=== PATIENT | female | born 1980 | race Caucasian/White ===

== ENCOUNTER → 2021-05-02 | Outpatient (CLI) | payer BC ==
[2021-05-02 12:32] LABS: Basophils % (A) 0 %; Eosinophils # (A) 0.1 k/uL (0-0.7); Eosinophils % (A) 2 %; HCT 49.3 % (34.0-46.0); HGB 15.6 gm/dL (11.4-16.0); Lymphocytes # (A) 1.6 k/uL (1.0-4.8); Lymphocytes % (A) 25 %; MCH 31.5 pg (25.0-35.0); MCHC 31.6 g/dL (31.0-37.0); MCV 99.8 fL (80.0-100.0); Mean Platelet Volume 7.2; Monocytes # (A) 0.3 k/uL (0-1.0); Monocytes % (A) 5 %; Neutrophils # (A) 4.3 k/uL (1.3-7.7); Neutrophils % (A) 66 %; Platelet Count 263 k/uL (150-450); RBC 4.94 m/uL (3.80-5.40); RDW 12.9 % (11.5-15.5); WBC 6.6 k/uL (3.8-10.6)
== END | disposition home or self-care (01) ==
LOC: LABWHC1 11:17
PROVIDERS: ATTEND Obstetrics & Gynecology
DX: Z01.812 Encounter for preprocedural laboratory examination (principal); Z01.810 Encounter for preprocedural cardiovascular examination; N92.0 Excessive and frequent menstruation with regular cycle; N94.6 Dysmenorrhea, unspecified; D25.9 Leiomyoma of uterus, unspecified
CPT/HCPCS: 36415; 85025; 93005

== ENCOUNTER 2021-05-06 08:28 | Day surgery (SDC) | payer BC ==
[2021-05-02 16:00] VITALS: BMI 33.8
[~2021-05-06 08:28] MED LIST: DEXAMETHASONE SOD PHOSPHATE 4 MG/ML 1 ML VIAL IV ONE; HYDROmorphone 0.5 MG/0.5 ML SYRINGE IVP PRN; LACTATED RINGERS 1,000 ML IV SCH; MIDAZOLAM 2 MG/2 ML VIAL IV PRN; ONDANSETRON 4 MG/2 ML VIAL IVP ONE; Pre Op ABX Message 1 EACH MISC MISCELLANE ONE; SCOPOLAMINE 1.5MG/72HR PATCH TRANSDERM ONE
[2021-05-06] MEDS ORDERED: LACTATED RINGERS 1,000 ML IV ONE (09:00)
[2021-05-06] MEDS ORDERED: LIDOCAINE 1% INJ 10MG/ML (20 ML MDV) ONE (09:57)
[2021-05-06] MEDS ORDERED: PROPOFOL 10 MG/ML 20 ML VIAL IV ONE (09:57)
[2021-05-06] MEDS ORDERED: fentaNYL (PF) 50 MCG/ML 2 ML AMP ONE (09:57)
[2021-05-06] MEDS ORDERED: KETOROLAC 15 MG/ML 1 ML VIAL ONE (09:57)
[2021-05-06] MEDS ORDERED: MIDAZOLAM 2 MG/2 ML VIAL ONE (09:57)
--- NOTE | 2021-05-06 10:41 | P.OP ---
Date of Procedure: 05/06/21 (Menorrhagia, dysmenorrhea) Preoperative Diagnosis: Menorrhagia, dysmenorrhea Postoperative Diagnosis: Same Procedure(s) Performed: Hysteroscopy, NovaSure endometrial ablation Anesthesia: DELL Surgeon: Aliza Gallegos Estimated Blood Loss (ml): 10 IV fluids (ml): 300 Urine output (ml): 300 Pathology: none sent Condition: stable Disposition: PACU Operative Findings: Essentially normal-appearing intrauterine cavity Description of Procedure: Patient is brought to the operating suite where a general anesthetic is administered without difficulty. She's placed in the dorsal lithotomy position. Urine hCG is negative. The cervix, vagina, perineal bodies are all prepped and draped in the usual sterile fashion. The appropriate timeout is performed to assure proper patient and procedural identification. Bladder is drained for approximately 300 mL of clear yellow urine. Weighted speculum was placed into the vagina and the anterior lip of the cervix is grasped with a double-tooth tenaculum. Uterus sounds to a depth of 8 cm in the anteverted position. The cervix is gently and systematically dilated with Hanks dilators. Hysteroscope was placed and the cavity is infused with sterile saline. Cavity appears normal to inspection, some shaggy proliferative-type tissue noted, no obvious fibroids or polyps. Hysteroscope was removed. NovaSure wand is now placed and seated. Uterine length of 4.5 cm is noted, with 2.5 cm. Machine is properly calibrated and enabled. For 85 seconds and a power of 62 W the procedure is carried out. When it is completed the wand is reduced and removed. Hysteroscope was once again placed and the cavity is inspected. It appears to be thoroughly and uniformly blanched. Hysteroscope was removed. Cervix is clean and dry. All sponge needle and enhancement counts are correct. Patient is brought back to recovery room in very good condition with stable vital signs including a pulse of 101, blood pressure 158/83, 98% O2 saturation. Please note that Toradol is given prior to leaving the operative suite. She will follow-up with me in the office in 2 weeks.
[2021-05-06 10:44] VITALS: RESP 16; TEMP 97.1
[2021-05-06 11:43] VITALS: BP 137/90; PULSE 72
== END 2021-05-06 12:00 | disposition home or self-care (01) ==
LOC: OR 08:28
PROVIDERS: ATTEND Obstetrics & Gynecology
DX: N92.0 Excessive and frequent menstruation with regular cycle (principal); N94.6 Dysmenorrhea, unspecified; I10 Essential (primary) hypertension; F17.210 Nicotine dependence, cigarettes, uncomplicated; Z79.899 Other long term (current) drug therapy
CPT/HCPCS: 58563; 81025; J2250; J1100; J2405; J2001; J3010; J1885; J2704

== ENCOUNTER 2021-06-15 06:47 | Day surgery (SDC) | payer BC ==
[2021-06-13 13:16] VITALS: BMI 33.8
[~2021-06-15 06:47] MED LIST changes: +ACETAMINOPHEN TAB 500 MG TAB PO PRN; -DEXAMETHASONE SOD PHOSPHATE 4 MG/ML 1 ML VIAL IV ONE; +HEPARIN SODIUM,PORCINE/PF 5,000 UNIT/0.5 ML SYRINGE SQ PRN; -HYDROmorphone 0.5 MG/0.5 ML SYRINGE IVP PRN; -LACTATED RINGERS 1,000 ML IV SCH; -MIDAZOLAM 2 MG/2 ML VIAL IV PRN; -ONDANSETRON 4 MG/2 ML VIAL IVP ONE; -Pre Op ABX Message 1 EACH MISC MISCELLANE ONE; -SCOPOLAMINE 1.5MG/72HR PATCH TRANSDERM ONE
[2021-06-15] MEDS ORDERED: MIDAZOLAM 2 MG/2 ML VIAL IV PRN (07:09)
[2021-06-15] MEDS ORDERED: LACTATED RINGERS 1,000 ML IV SCH (07:09)
[2021-06-15] MEDS ORDERED: HYDROmorphone 0.5 MG/0.5 ML SYRINGE IVP PRN (07:09)
[2021-06-15] MEDS ORDERED: LIDOCAINE 1% (10MG/ML) FOR IV START INTRADERMA PRN (07:09)
[2021-06-15] MEDS ORDERED: ONDANSETRON 4 MG/2 ML VIAL IVP ONE (07:09)
[2021-06-15] MEDS ORDERED: DEXAMETHASONE SOD PHOSPHATE 4 MG/ML 1 ML VIAL IV ONE (07:09)
[2021-06-15] MEDS ORDERED: SCOPOLAMINE 1.5MG/72HR PATCH TRANSDERM ONE (07:57)
[2021-06-15] MEDS ORDERED: MIDAZOLAM 2 MG/2 ML VIAL IV ONE (08:14)
--- NOTE | 2021-06-15 08:57 | P.GSHP ---
History of Present Illness H&P Date: 06/15/21 Chief Complaint: Incisional hernia incarcerated This is a 40-year-old female who presents today for laparoscopic robotic- assisted repair of incisional hernia. Patient underwent previous exploratory laparotomy after colonic perforation from colonoscopy at an outside hospital. She has developed an incisional hernia superior portion of her midline scar Past Medical History Past Medical History: Hypertension History of Any Multi-Drug Resistant Organisms: None Reported Past Surgical History: Uterine Ablation Additional Past Surgical History / Comment(s): Colonoscopy - perforated, had bowel sutured back. Past Anesthesia/Blood Transfusion Reactions: No Reported Reaction Past Psychological History: No Psychological Hx Reported Smoking Status: Current every day smoker Past Alcohol Use History: Occasional Additional Past Alcohol Use History / Comment(s): 1ppd smoker since age 14. Past Drug Use History: None Reported - Past Family History Mother Family Medical History: Cancer, Deep Vein Thrombosis (DVT) Medications and Allergies Home Medications Medication Instructions Recorded Confirmed Type Blood Builder Supplement 1 dose PO DAILY 05/02/21 06/13/21 History Collagen Supplement 1 dose PO DAILY 05/02/21 06/13/21 History Losartan [Cozaar] 50 mg PO QAM 05/02/21 06/15/21 History Multivitamins, Thera [Multivitamin 1 tab PO DAILY 05/02/21 06/13/21 History (formulary)] Phentermine HCl [Adipex-P] 37.5 mg PO DAILY 05/02/21 06/15/21 History [place] Supplement 1 dose PO DAILY 05/02/21 06/13/21 History Allergies Allergy/AdvReac Type Severity Reaction Status Date / Time acetaminophen AdvReac Nausea & Verified 06/13/21 13:09 [From Darvocet-N] Vomiting propoxyphene AdvReac Nausea & Verified 06/15/21 07:10 [From Darvocet-N] Vomiting Surgical - Exam Vital Signs Pulse Resp BP Pulse Ox 93 16 141/84 98 06/15/21 07:17 06/15/21 07:17 06/15/21 07:17 06/15/21 07:17 - General well developed, well nourished, no distress - Eyes PERRL - ENT normal pinna - Neck no masses - Respiratory normal expansion - Cardiovascular Rhythm: regular - Abdomen Abdomen: soft, non tender Hernia: incisional (5 cm incisional hernia) Assessment and Plan Plan: Incisional hernia. We'll perform laparoscopic robotic system repair.
[2021-06-15] MEDS ORDERED: NEOSTIGMINE 1 MG/ML 10 ML VIAL ONE (09:12)
[2021-06-15] MEDS ORDERED: fentaNYL (PF) 50 MCG/ML 2 ML AMP ONE (09:12)
[2021-06-15] MEDS ORDERED: LABETALOL 5 MG/ML VIAL MDV ONE (09:12)
[2021-06-15] MEDS ORDERED: KETOROLAC 15 MG/ML 1 ML VIAL ONE (09:12)
[2021-06-15] MEDS ORDERED: MIDAZOLAM 2 MG/2 ML VIAL ONE (09:12)
[2021-06-15] MEDS ORDERED: LIDOCAINE 1% INJ 10MG/ML (20 ML MDV) ONE (09:12)
[2021-06-15] MEDS ORDERED: SODIUM CHLORIDE 0.9% (PF) 10 ML VIAL ONE (09:12)
[2021-06-15] MEDS ORDERED: KETAMINE 10 MG/ML 20 ML VIAL ONE (09:12)
[2021-06-15] MEDS ORDERED: PROPOFOL 10 MG/ML 20 ML VIAL IV ONE (09:12)
[2021-06-15] MEDS ORDERED: SUCCINYLCHOLINE CHLORIDE 100 MG/5 ML SYR IV ONE (09:12)
[2021-06-15] MEDS ORDERED: ROPIVACAINE 5 MG/ML 30 ML VIAL ONE (09:12)
[2021-06-15] MEDS ORDERED: HYDROmorphone (PF) 1 MG/ML ONE (09:12)
[2021-06-15] MEDS ORDERED: GLYCOPYRROLATE 0.2 MG/ML 2 ML VIAL ONE (09:12)
[2021-06-15] MEDS ORDERED: ROCURONIUM 10 MG/ML (5 ML VIAL) IV ONE (09:12)
[2021-06-15] MEDS ORDERED: BUPIVACAINE (PF) 0.5% 30 ML VIAL SQ ONE (09:36)
[2021-06-15] MEDS ORDERED: LACTATED RINGERS 1,000 ML IV ONE (10:07)
--- NOTE | 2021-06-15 10:15 | P.ANPRN ---
Procedure Note - Anesthesia - Nerve Block Performed Bilateral Erector Spinae Single Time Out Performed: Yes Date of Procedure: 06/15/21 Procedure Start Time: Procedure Stop Time: Location of Patient: PreOp Indication: Acute Post-Operative Pain, Requested by Surgeon Sedation Type: Sedate with meaningful contact maintained Preparation: Sterile Prep Position: Prone Needle Types: Pajunk Needle Gauge: 21 Ultrasound used to visualize needle placement: Yes Ultrasound used to observe medication spread: Yes Blood Aspirated: No Pain Paresthesia on Injection Noted: No Resistance on Injection: Normal Image Stored and Saved: Yes Events: Uneventful and Well Tolerated (ropi .5% 15cc plus ns 15 cc given bilaterally)
--- NOTE | 2021-06-15 10:17 | P.OP ---
Date of Procedure: 06/15/21 Preoperative Diagnosis: Incarcerated incisional hernia Postoperative Diagnosis: Incarcerated incisional hernia Procedure(s) Performed: Laparoscopic robotic system repair of incarcerated incisional hernia Anesthesia: MAC Surgeon: Eduard Workman Estimated Blood Loss (ml): 5 Pathology: none sent Condition: stable Disposition: PACU Description of Procedure: The patient was placed on the operating table in the supine position. He received general anesthesia. His abdomen was prepped and draped usual fashion. Using a 5 mm optical trocar under direct visualization the peritoneal cavity was entered in the left upper quadrant. The abdomen was then insufflated. The laparoscope was placed back into the perineal cavity. Next a 8 mm robotic trocar was placed in the left lower quadrant and a 12 mm robotic trocar was placed in the left lateral position. The original 5 mm trocar was exchanged for a 8 mm robotic trocar. The patient's placed in the left side up position. And the patient was docked to the robot. The incisional hernia was visualized. The incarcerated omentum was reduced. Using hook cautery the peritoneum over the incisional hernia was excised. The fascial opening was repaired using 0V LOC suture. Next a piece of 11 cm round ventral light ST mesh was placed into the. Cavity and secured with 2 OV lock suture. The patient was undocked the robot. The needles were retrieved. The fascia of the 12 mm trocar site was closed with 0 Ethibond suture. Skin was closed interrupted 3-0 Monocryl suture. Dermabond dressings was applied. Patient tolerated procedure well and was sent to recovery room stable condition.
[2021-06-15 10:28] VITALS: TEMP 97.1
[2021-06-15] MEDS ORDERED: oxyCODONE-APAP 5-325MG 1 EACH TAB ONE (11:26)
[2021-06-15] MEDS ORDERED: oxyCODONE-APAP 5-325MG 1 EACH TAB PO ONE (11:26)
[2021-06-15 11:43] VITALS: RESP 18
[2021-06-15 12:18] VITALS: BP 112/84; PULSE 71
== END 2021-06-15 12:26 | disposition home or self-care (01) ==
LOC: OR 06:47
PROVIDERS: ATTEND Surgery
DX: K43.0 Incisional hernia with obstruction, without gangrene (principal); I10 Essential (primary) hypertension; Z98.890 Other specified postprocedural states; F17.210 Nicotine dependence, cigarettes, uncomplicated; Z82.49 Family history of ischemic heart disease and other diseases of the circulatory system; Z80.9 Family history of malignant neoplasm, unspecified; Z79.899 Other long term (current) drug therapy; Z88.5 Allergy status to narcotic agent
CPT/HCPCS: 49655; S2900; 64999; 81025

== ENCOUNTER 2021-06-22 10:39 | Inpatient (IN) | payer BC ==
[2021-06-22] MEDS ORDERED: ONDANSETRON 4 MG/2 ML VIAL IVP STA (11:12)
[2021-06-22] MEDS ORDERED: MORPHINE SULFATE 2 MG/ML SYRINGE IV STA (11:12)
[2021-06-22] MEDS ORDERED: SODIUM CHLORIDE 0.9% 1,000 ML IV STA (11:12)
[2021-06-22 11:57] LABS: Basophils # (A) 0.1 k/uL (0-0.2); Basophils % (A) 0 %; Eosinophils # (A) 0.2 k/uL (0-0.7); Eosinophils % (A) 1 %; HCT 52.2 % (34.0-46.0); HGB 17.6 gm/dL (11.4-16.0); Lymphocytes # (A) 1.9 k/uL (1.0-4.8); Lymphocytes % (A) 13 %; MCH 31.9 pg (25.0-35.0); MCHC 33.8 g/dL (31.0-37.0); Mean Platelet Volume 6.7; Monocytes # (A) 0.8 k/uL (0-1.0); Monocytes % (A) 5 %; Neutrophils # (A) 11.2 k/uL (1.3-7.7); Neutrophils % (A) 78 %; Platelet Count 407 k/uL (150-450); RBC 5.52 m/uL (3.80-5.40); RDW 11.6 % (11.5-15.5); WBC 14.4 k/uL (3.8-10.6)
[2021-06-22 12:07] LABS: ALT 18 U/L (4-34); AST 31 U/L (14-36); African American GFR (CKD) >90 (>60 ml/min/1.73 sqM); Albumin 4.6 g/dL (3.5-5.0); Alkaline Phosphatase 80 U/L (38-126); Amylase 57 U/L (30-110); Anion Gap 16 mmol/L; Blood Urea Nitrogen 33 mg/dL (7-17); Carbon Dioxide 28 mmol/L (22-30); Chloride 84 mmol/L (98-107); Glucose 121 mg/dL (74-99); Lipase 68 U/L (23-300); Non-African American GFR(CKD) >90 (>60 ml/min/1.73 sqM); Potassium 3.9 mmol/L (3.5-5.1); Sodium 128 mmol/L (137-145); Total Protein 7.5 g/dL (6.3-8.2)
[2021-06-22 12:12] LABS: Appearance,Urine Cloudy (Clear); Bacteria,Urine Occasional /hpf; Bilirubin,Urine 1+ (Negative); Blood,Urine Negative (Negative); Cellular Casts,Urine 7 /lpf (0); Color,Urine Yellow; Glucose,Urine (UA) Negative (Negative); Hyaline Casts,Urine 42 /lpf (0-2); Ketones,Urine 2+ (Negative); Leukocyte Esterase,Urine Small (Negative); Mucus,Urine Many /hpf; Nitrite,Urine Negative (Negative); PH, Urine 5.5 (5.0-8.0); Protein,Urine 1+ (Negative); RBC,Urine 3 /hpf (0-5); Specific Gravity,Urine 1.029 (1.001-1.035); Squamous Epithelial Cell,Urine 3 /hpf (0-4); WBC,Urine 6 /hpf (0-5)
[2021-06-22 12:18] LABS: MCV 94.6 fL (80.0-100.0)
--- NOTE | 2021-06-22 12:24 | CT ---
EXAMINATION TYPE: CT abdomen pelvis w con DATE OF EXAM: 06/22/2021 COMPARISON: None HISTORY: Hernia repair last week. Nausea and vomiting since. CT DLP: 1179 mGycm Automated exposure control for dose reduction was used. CONTRAST: CT scan of the abdomen pelvis is performed with IV Contrast, patient injected with 100 mL of Isovue 3 00. FINDINGS- LUNG BASES-subsegmental changes involving the lung bases most typical scar or atelectasis. LIVER/GB- No gross abnormality is appreciated. PANCREAS- No gross abnormality is seen. SPLEEN- No gross abnormality is seen. ADRENALS- No gross abnormality is seen. KIDNEYS/BLADDER- no hydronephrosis nephrolithiasis or renal mass. BOWEL-numerous severely dilated small bowel loops are seen and there is an anterior abdominal wall he rnia containing fat and segments of more normal or decompressed small bowel. Obstructive hernia or ad hesion in the differential diagnosis. Up bowel wall thickening of small bowel suggest edematous jesnen es of the wall. Could not exclude an early strangulation. There is some thickening of the wall the GE junction which could be correlated with direct visualizat ion.. LYMPH NODES- No greater than 1cm abdominal or pelvic lymph nodes areappreciated. OSSEOUS STRUCTURES- No significant abnormality is seen. OTHER- there is an area of hyperdensity seen posterior to the uterine body on axial image 66 measuri ng 1.8 cm which could represent posterior uterine fibroid as well as small amount of hemorrhage withi n the pelvis not excluded and pelvic ultrasound correlation is suggested. IMPRESSION- 1. Numerous severely dilated small bowel loops with enhancing wall suggestive of edema. There is an a brupt caliber change of the bowel at the level of an anterior abdominal wall hernia and findings are suspicious for an obstructive hernia. Strangulation or incarceration not excluded. 2. 1.8 cm hyperdense area posterior to the right margin of the uterus in the pelvis as discussed abov e could represent uterine fibroid. Given its hyperdensity small amount of hemorrhage within the pelvi s not excluded and recommend pelvic ultrasound. 3. There is thickening the wall the GE junction. Direct visualization recommended for further evaluat ion
--- NOTE | 2021-06-22 12:41 | ED ---
General Adult HPI - General Chief complaint: Nausea/Vomiting/Diarrhea Stated complaint: Nausea & Vomiting Time Seen by Provider: 06/22/21 11:00 Source: patient, RN notes reviewed Mode of arrival: ambulatory Limitations: no limitations - History of Present Illness Initial comments: Patient is a 4-year-old female that presents to emergency room complaining of nausea vomiting and some abdominal discomfort. She notes she is status one week post incisional hernia repair with Dr. Workman. She notes that she's had a difficult time keeping any food down even pills. She notes that when she does get pills down she vomits them back up in a still hardly digested. She notes that she is in no real discomfort stated that her pain was approximately 3-4 out of 10 with no relief. She is otherwise well-appearing. She was still wearing her abdominal binder from previous surgery. She denied any change in bowel. She denied chest pain shortness of breath headache diarrhea constipation fever fatigue chills. - Related Data Home Medications Medication Instructions Recorded Confirmed Losartan [Cozaar] 50 mg PO DAILY 05/02/21 06/22/21 Multivitamins, Thera [Multivitamin 1 tab PO DAILY 05/02/21 06/22/21 (formulary)] Phentermine HCl [Adipex-P] 37.5 mg PO DAILY 05/02/21 06/22/21 Acetaminophen Tab [Tylenol] 650 mg PO Q6H PRN 06/22/21 06/22/21 Evening [place] Oil 500 mg PO DAILY 06/22/21 06/22/21 Previous Rx's Medication Instructions Recorded Docusate [Colace] 100 mg PO BID #20 cap 06/15/21 Ibuprofen [Motrin] 600 mg PO Q6HR PRN #40 tab 06/15/21 oxyCODONE HCL [OxyIR] 5 mg PO Q6H PRN 3 Days #10 tab 06/15/21 Allergies Allergy/AdvReac Type Severity Reaction Status Date / Time acetaminophen AdvReac Nausea & Verified 06/22/21 12:03 [From Darvocet-N] Vomiting propoxyphene AdvReac Nausea & Verified 06/22/21 12:03 [From Darvocet-N] Vomiting Review of Systems ROS Statement: Those systems with pertinent positive or pertinent negative responses have been documented in the HPI. ROS Other: All systems not noted in ROS Statement are negative. Past Medical History Past Medical History: Hypertension History of Any Multi-Drug Resistant Organisms: None Reported Past Surgical History: Hernia Repair, Uterine Ablation Additional Past Surgical History / Comment(s): Colonoscopy - perforated, had bowel sutured back. Past Anesthesia/Blood Transfusion Reactions: No Reported Reaction Past Psychological History: No Psychological Hx Reported Smoking Status: Current every day smoker Past Alcohol Use History: Occasional Past Drug Use History: None Reported - Past Family History Mother Family Medical History: Cancer, Deep Vein Thrombosis (DVT) General Exam Limitations: no limitations General appearance: alert, in no apparent distress Head exam: Present: atraumatic, normocephalic, normal inspection Eye exam: Present: normal appearance, PERRL, EOMI. Absent: scleral icterus, conjunctival injection, periorbital swelling ENT exam: Present: normal exam, mucous membranes moist Neck exam: Present: normal inspection Respiratory exam: Present: normal lung sounds bilaterally. Absent: respiratory distress, wheezes, rales, rhonchi, stridor Cardiovascular Exam: Present: regular rate, normal rhythm, normal heart sounds. Absent: systolic murmur, diastolic murmur, rubs, gallop, clicks GI/Abdominal exam: Present: soft, tenderness (Generalized.), normal bowel sounds. Absent: distended, guarding, rebound, rigid Extremities exam: Present: normal inspection, full ROM, normal capillary refill. Absent: tenderness, pedal edema, joint swelling, calf tenderness Neurological exam: Present: alert, oriented X3 Psychiatric exam: Present: normal affect, normal mood Skin exam: Present: warm, dry, intact, normal color. Absent: rash Course Vital Signs 06/22/21 06/22/21 10:42 14:07 Temperature 97.9 F 97.6 F Pulse Rate 135 H Pulse Rate [ 113 H Right Sitting Pulse Oximetery ] Respiratory 18 18 Rate Blood Pressure 143/97 Blood Pressure 178/90 [Right Arm Sitting] O2 Sat by Pulse 97 95 Oximetry Medical Decision Making - Medical Decision Making 40-year-old female 1 week status post hernia repair. Labs, 1 L normal saline, 4 mg of Zofran, 2 mg of morphine, CT of the abdomen and pelvis ordered. CT shows bowel obstruction. Dr. Workman was the surgeon week ago, he was perfect served. Labs: White blood cells 14.4, sodium 128, urinalysis dirty specimen. Dr. Workman was consulted and will accept the admit. Case discussed with Dr. Brown - Lab Data Result diagrams: 06/22/21 11:36 06/22/21 11:36 Lab Results 06/22/21 06/22/21 06/22/21 Range/Units 11:36 11:36 11:36 WBC 14.4 H (3.8-10.6) k/uL RBC 5.52 H (3.80-5.40) m/uL Hgb 17.6 H (11.4-16.0) gm/dL Hct 52.2 H (34.0-46.0) % MCV 94.6 D (80.0-100.0) fL MCH 31.9 (25.0-35.0) pg MCHC 33.8 (31.0-37.0) g/dL RDW 11.6 (11.5-15.5) % Plt Count 407 (150-450) k/uL MPV 6.7 Neutrophils % 78 % Lymphocytes % 13 % Monocytes % 5 % Eosinophils % 1 % Basophils % 0 % Neutrophils # 11.2 H (1.3-7.7) k/uL Lymphocytes # 1.9 (1.0-4.8) k/uL Monocytes # 0.8 (0-1.0) k/uL Eosinophils # 0.2 (0-0.7) k/uL Basophils # 0.1 (0-0.2) k/uL Sodium 128 L (137-145) mmol/L Potassium 3.9 (3.5-5.1) mmol/L Chloride 84 L (98-107) mmol/L Carbon Dioxide 28 (22-30) mmol/L Anion Gap 16 mmol/L BUN 33 H (7-17) mg/dL Creatinine 0.71 (0.52-1.04) mg/dL Est GFR (CKD-EPI)AfAm >90 (>60 ml/min/1.73 sqM) Est GFR (CKD-EPI)NonAf >90 (>60 ml/min/1.73 sqM) Glucose 121 H (74-99) mg/dL Calcium 11.0 H (8.4-10.2) mg/dL Total Bilirubin 1.0 (0.2-1.3) mg/dL AST 31 (14-36) U/L ALT 18 (4-34) U/L Alkaline Phosphatase 80 (38-126) U/L Total Protein 7.5 (6.3-8.2) g/dL Albumin 4.6 (3.5-5.0) g/dL Amylase 57 (30-110) U/L Lipase 68 (23-300) U/L Urine Color Yellow Urine Appearance Cloudy H (Clear) Urine pH 5.5 (5.0-8.0) Ur Specific [place] 1.029 (1.001-1.035) Urine Protein 1+ H (Negative) Urine Glucose (UA) Negative (Negative) Urine Ketones 2+ H (Negative) Urine Blood Negative (Negative) Urine Nitrite Negative (Negative) Urine Bilirubin 1+ H (Negative) Urine Urobilinogen 4.0 (<2.0) mg/dL Ur Leukocyte Esterase Small H (Negative) Urine RBC 3 (0-5) /hpf Urine WBC 6 H (0-5) /hpf Ur Squamous Epith Cells 3 (0-4) /hpf Urine Bacteria Occasional H (None) /hpf Cellular Casts 7 (0) /lpf Hyaline Casts 42 H (0-2) /lpf Urine Mucus Many H (None) /hpf Urine HCG, Qual (Not Detectd) 06/22/21 Range/Units 11:36 WBC (3.8-10.6) k/uL RBC (3.80-5.40) m/uL Hgb (11.4-16.0) gm/dL Hct (34.0-46.0) % MCV (80.0-100.0) fL MCH (25.0-35.0) pg MCHC (31.0-37.0) g/dL RDW (11.5-15.5) % Plt Count (150-450) k/uL MPV Neutrophils % % Lymphocytes % % Monocytes % % Eosinophils % % Basophils % % Neutrophils # (1.3-7.7) k/uL Lymphocytes # (1.0-4.8) k/uL Monocytes # (0-1.0) k/uL Eosinophils # (0-0.7) k/uL Basophils # (0-0.2) k/uL Sodium (137-145) mmol/L Potassium (3.5-5.1) mmol/L Chloride (98-107) mmol/L Carbon Dioxide (22-30) mmol/L Anion Gap mmol/L BUN (7-17) mg/dL Creatinine (0.52-1.04) mg/dL Est GFR (CKD-EPI)AfAm (>60 ml/min/1.73 sqM) Est GFR (CKD-EPI)NonAf (>60 ml/min/1.73 sqM) Glucose (74-99) mg/dL Calcium (8.4-10.2) mg/dL Total Bilirubin (0.2-1.3) mg/dL AST (14-36) U/L ALT (4-34) U/L Alkaline Phosphatase (38-126) U/L Total Protein (6.3-8.2) g/dL Albumin (3.5-5.0) g/dL Amylase (30-110) U/L Lipase (23-300) U/L Urine Color Urine Appearance (Clear) Urine pH (5.0-8.0) Ur Specific [place] (1.001-1.035) Urine Protein (Negative) Urine Glucose (UA) (Negative) Urine Ketones (Negative) Urine Blood (Negative) Urine Nitrite (Negative) Urine Bilirubin (Negative) Urine Urobilinogen (<2.0) mg/dL Ur Leukocyte Esterase (Negative) Urine RBC (0-5) /hpf Urine WBC (0-5) /hpf Ur Squamous Epith Cells (0-4) /hpf Urine Bacteria (None) /hpf Cellular Casts (0) /lpf Hyaline Casts (0-2) /lpf Urine Mucus (None) /hpf Urine HCG, Qual Not Detected (Not Detectd) - Radiology Data Radiology results: report reviewed, image reviewed CT abdomen and pelvis: Numerous severely dilated small bowel loops with enhancing wall suggestive of edema. There is an abrupt caliber changes about the level of the anterior abdominal wall hernia and findings are suspicious for an obstructive hernia. Strenuous or incarceration actually. 1.8 cm hyperdense area posterior to the right margin of the uterus a pelvic as discussed above could represent uterine fibroid. Given its hyperdensity small amount of hemorrhage within the pelvis not excluded and recommend pelvic ultrasound. There is thickening in the wall of the GE junction direct visualization are recommended for further evaluation. Disposition Clinical Impression: Bowel obstruction, Nausea & vomiting Disposition: ADMITTED IP TO THIS [facility] Condition: Stable Is patient prescribed a controlled substance at d/c from ED?: No Referrals: Agustin Yañez MD [Primary Care Provider] - 1-2 days Time of Disposition: 14:14
[2021-06-22] MEDS ORDERED: NALOXONE 0.4 MG/ML 1 ML VIAL IV PRN ×2 (12:59→15:18)
[2021-06-22] MEDS ORDERED: ONDANSETRON 4 MG/2 ML VIAL IVP PRN ×2 (12:59→15:18)
--- NOTE | 2021-06-22 13:16 | P.GSHP ---
History of Present Illness H&P Date: 06/22/21 Chief Complaint: Nausea, vomiting Is a 40-year-old female who underwent laparoscopic repair of incisional hernia approximately week ago. Patient states the last 3 days she's had nausea vomiting. Patient to CAT scan performed which was suspicious for incarcerated incisional hernia causing bowel obstruction. Past Medical History Past Medical History: Hypertension History of Any Multi-Drug Resistant Organisms: None Reported Past Surgical History: Hernia Repair, Uterine Ablation Additional Past Surgical History / Comment(s): Colonoscopy - perforated, had b owel sutured back. Past Anesthesia/Blood Transfusion Reactions: No Reported Reaction Past Psychological History: No Psychological Hx Reported Smoking Status: Current every day smoker Past Alcohol Use History: Occasional Past Drug Use History: None Reported - Past Family History Mother Family Medical History: Cancer, Deep Vein Thrombosis (DVT) Medications and Allergies Home Medications Medication Instructions Recorded Confirmed Type Losartan [Cozaar] 50 mg PO DAILY 05/02/21 06/22/21 History Multivitamins, Thera [Multivitamin 1 tab PO DAILY 05/02/21 06/22/21 History (formulary)] Phentermine HCl [Adipex-P] 37.5 mg PO DAILY 05/02/21 06/22/21 History Docusate [Colace] 100 mg PO BID #20 cap 06/15/21 06/22/21 Rx Ibuprofen [Motrin] 600 mg PO Q6HR PRN #40 tab 06/15/21 06/22/21 Rx oxyCODONE HCL [OxyIR] 5 mg PO Q6H PRN 3 Days #10 tab 06/15/21 06/22/21 Rx Acetaminophen Tab [Tylenol] 650 mg PO Q6H PRN 06/22/21 06/22/21 History Evening [place] Oil 500 mg PO DAILY 06/22/21 06/22/21 History Allergies Allergy/AdvReac Type Severity Reaction Status Date / Time acetaminophen AdvReac Nausea & Verified 06/22/21 12:03 [From Darvocet-N] Vomiting propoxyphene AdvReac Nausea & Verified 06/22/21 12:03 [From Darvocet-N] Vomiting Surgical - Exam Vital Signs Temp Pulse Resp BP Pulse Ox 97.9 F 135 H 18 143/97 97 06/22/21 10:42 06/22/21 10:42 06/22/21 10:42 06/22/21 10:42 06/22/21 10:42 - General well developed, well nourished, no distress - Eyes PERRL - ENT normal pinna - Neck no masses - Respiratory normal expansion - Cardiovascular Rhythm: regular - Abdomen Tender mass at the umbilicus suspicious for incarcerated incisional hernia Abdomen: soft, distended Results - Labs 06/22/21 11:36 06/22/21 11:36 Abnormal Lab Results - Last 24 Hours (Table) 06/22/21 06/22/21 06/22/21 Range/Units 11:36 11:36 11:36 WBC 14.4 H (3.8-10.6) k/uL RBC 5.52 H (3.80-5.40) m/uL Hgb 17.6 H (11.4-16.0) gm/dL Hct 52.2 H (34.0-46.0) % Neutrophils # 11.2 H (1.3-7.7) k/uL Sodium 128 L (137-145) mmol/L Chloride 84 L (98-107) mmol/L BUN 33 H (7-17) mg/dL Glucose 121 H (74-99) mg/dL Calcium 11.0 H (8.4-10.2) mg/dL Urine Appearance Cloudy H (Clear) Urine Protein 1+ H (Negative) Urine Ketones 2+ H (Negative) Urine Bilirubin 1+ H (Negative) Ur Leukocyte Esterase Small H (Negative) Urine WBC 6 H (0-5) /hpf Urine Bacteria Occasional H (None) /hpf Hyaline Casts 42 H (0-2) /lpf Urine Mucus Many H (None) /hpf Diabetes panel 06/22/21 Range/Units 11:36 Sodium 128 L (137-145) mmol/L Potassium 3.9 (3.5-5.1) mmol/L Chloride 84 L (98-107) mmol/L Carbon Dioxide 28 (22-30) mmol/L BUN 33 H (7-17) mg/dL Creatinine 0.71 (0.52-1.04) mg/dL Glucose 121 H (74-99) mg/dL Calcium 11.0 H (8.4-10.2) mg/dL AST 31 (14-36) U/L ALT 18 (4-34) U/L Alkaline Phosphatase 80 (38-126) U/L Total Protein 7.5 (6.3-8.2) g/dL Albumin 4.6 (3.5-5.0) g/dL Calcium panel 06/22/21 Range/Units 11:36 Calcium 11.0 H (8.4-10.2) mg/dL Albumin 4.6 (3.5-5.0) g/dL Pituitary panel 06/22/21 Range/Units 11:36 Sodium 128 L (137-145) mmol/L Potassium 3.9 (3.5-5.1) mmol/L Chloride 84 L (98-107) mmol/L Carbon Dioxide 28 (22-30) mmol/L BUN 33 H (7-17) mg/dL Creatinine 0.71 (0.52-1.04) mg/dL Glucose 121 H (74-99) mg/dL Calcium 11.0 H (8.4-10.2) mg/dL Adrenal panel 06/22/21 Range/Units 11:36 Sodium 128 L (137-145) mmol/L Potassium 3.9 (3.5-5.1) mmol/L Chloride 84 L (98-107) mmol/L Carbon Dioxide 28 (22-30) mmol/L BUN 33 H (7-17) mg/dL Creatinine 0.71 (0.52-1.04) mg/dL Glucose 121 H (74-99) mg/dL Calcium 11.0 H (8.4-10.2) mg/dL Total Bilirubin 1.0 (0.2-1.3) mg/dL AST 31 (14-36) U/L ALT 18 (4-34) U/L Alkaline Phosphatase 80 (38-126) U/L Total Protein 7.5 (6.3-8.2) g/dL Albumin 4.6 (3.5-5.0) g/dL Assessment and Plan Assessment: Recurrent incarcerated incisional hernia. Patient will undergo exploratory laparotomy today due to her bowel obstruction symptoms.
[2021-06-22] MEDS ORDERED: HEPARIN SODIUM,PORCINE/PF 5,000 UNIT/0.5 ML SYRINGE SQ ONE (13:46)
[2021-06-22] MEDS ORDERED: LACTATED RINGERS 1,000 ML IV ONE ×3 (14:08→16:41)
[2021-06-22] MEDS ORDERED: SCOPOLAMINE 1.5MG/72HR PATCH TRANSDERM ONE (14:16)
[2021-06-22] MEDS ORDERED: DEXAMETHASONE SOD PHOSPHATE 4 MG/ML 1 ML VIAL IVP ONE (14:16)
[2021-06-22] MEDS ORDERED: GLYCOPYRROLATE 0.2 MG/ML 2 ML VIAL ONE (14:28)
[2021-06-22] MEDS ORDERED: MIDAZOLAM 2 MG/2 ML VIAL ONE (14:28)
[2021-06-22] MEDS ORDERED: SUCCINYLCHOLINE CHLORIDE 100 MG/5 ML SYR IV ONE (14:28)
[2021-06-22] MEDS ORDERED: ROCURONIUM 10 MG/ML (5 ML VIAL) IV ONE (14:28)
[2021-06-22] MEDS ORDERED: PROPOFOL 10 MG/ML 20 ML VIAL IV ONE (14:28)
[2021-06-22] MEDS ORDERED: fentaNYL (PF) 50 MCG/ML 2 ML AMP ONE (14:28)
[2021-06-22] MEDS ORDERED: LIDOCAINE 1% INJ 10MG/ML (20 ML MDV) ONE (14:28)
[2021-06-22] MEDS ORDERED: HYDROmorphone (PF) 1 MG/ML ONE (14:28)
[2021-06-22] MEDS ORDERED: NEOSTIGMINE 1 MG/ML 10 ML VIAL ONE (14:28)
[2021-06-22] MEDS: PIPERACILLIN-TAZOBACTAM 3.375 GM in SODIUM CHLORIDE 0.9% 100 ML IVPB SCH ×2 (14:36→23:38)
--- NOTE | 2021-06-22 15:18 | P.OP ---
Date of Procedure: 06/22/21 Preoperative Diagnosis: Incarcerated incisional hernia Postoperative Diagnosis: Incarcerated incisional hernia Procedure(s) Performed: Repair of incarcerated incisional hernia Removal of mesh Anesthesia: DELL Surgeon: Eduard Workman Estimated Blood Loss (ml): 5 Pathology: other (Hernia sac, mesh) Condition: stable Disposition: PACU Description of Procedure: The patient's placed on the operating table in the supine position. She received general endotracheal tube anesthesia. Her abdomen was prepped and draped usual fashion. The skin was incised in the midline scar. Electrocautery subcutaneous tissue divided away from the hernia sac. Hernia sac was opened and contained small bowel. The hernia sac was excised. The fascial repair was examined. There appeared to be a break in the fascial suture of the original repair. This point the suture was cut and removed. The mesh was removed. The fascia was then closed using. 0 Ethibond suture. Decided not to replace the mesh due to risk of infection. The skin was closed with angela. Patient top she will was sent to recovery in stable condition.
[2021-06-22] MEDS ORDERED: hydrALAZINE HCL 20 MG/ML 1 ML VIAL ONE (15:36)
[2021-06-22] MEDS ORDERED: HYDROmorphone 0.5 MG/0.5 ML SYRINGE IVP ONE ×3 (15:39→16:11)
[2021-06-22] MEDS ORDERED: hydrALAZINE HCL 20 MG/ML 1 ML VIAL IVP ONE (15:43)
[2021-06-22] MEDS: HYDROcodone/APAP 5-325MG 1 EACH TAB PO PRN (19:35)
[2021-06-22] MEDS: SODIUM CHLORIDE 0.9% 1,000 ML IV SCH (21:45)
[2021-06-23] MEDS: HYDROcodone/APAP 5-325MG 1 EACH TAB PO PRN ×3 (01:07→12:27)
[2021-06-23] MEDS: SODIUM CHLORIDE 0.9% 1,000 ML IV SCH (05:34)
[2021-06-23] MEDS ORDERED: LOSARTAN 50 MG TAB PO SCH (09:00)
[2021-06-23] MEDS ORDERED: ENOXAPARIN 30 MG/0.3 ML SYRINGE SQ SCH (09:00)
[2021-06-23] MEDS ORDERED: PATIENT'S OWN (Phentermine Hcl [Adipex-P] 37.5 MG Tablet) PO SCH (09:00)
[2021-06-23] MEDS ORDERED: ENOXAPARIN 40 MG/0.4 ML SYRINGE SQ SCH (09:00)
[2021-06-23] MEDS: PIPERACILLIN-TAZOBACTAM 3.375 GM in SODIUM CHLORIDE 0.9% 100 ML IVPB SCH (09:05)
[2021-06-23 13:46] VITALS: BP 117/73; PULSE 87; RESP 18; TEMP 98.6
--- NOTE | 2021-06-23 14:18 | P.DS ---
Providers Expected date of discharge: 06/23/21 Attending physician: Eduard Workman Consults: 06/22/21 15:18 Consult Physician Routine Consulting Provider: Juma Rodgers Consult Reason/Comments: Medical management Do you want consulting provider notified?: Yes Primary care physician: Agustin Yañez Hospital Course: Discharge diagnosis Incarcerated incisional hernia status post repair of incarcerated incisional hernia and removal of mesh Hospital course this is a 40-year-old female who underwent laparoscopic repair of incisional hernia approximately week ago. Patient states the last 3 days she's had nausea vomiting. Patient to CAT scan performed which was suspicious for incarcerated incisional hernia causing bowel obstruction. She is status post repair of incarcerated incisional hernia and removal of mesh. Her pain is controlled. She is up and ambulating. She is afebrile. Denies any difficult to urinating. She is tolerating diet. Patient is stable for discharge. Please refer to chart for any further details. Physician Citizenship Teacher note has been reviewed by physician. Signing provider agrees with the documented findings, assessment, and plan of care. Patient Condition at Discharge: Stable Plan - Discharge Summary Discharge Rx Participant: Yes New Discharge Prescriptions: New oxyCODONE HCL [OxyIR] 5 mg PO Q6H PRN 3 Days #12 tab PRN Reason: Pain Continue Evening [place] Oil 500 mg PO DAILY Ibuprofen [Motrin] 600 mg PO Q6HR PRN #40 tab PRN Reason: Pain Losartan [Cozaar] 50 mg PO DAILY Phentermine HCl [Adipex-P] 37.5 mg PO DAILY Multivitamins, Thera [Multivitamin (formulary)] 1 tab PO DAILY Docusate [Colace] 100 mg PO BID #20 cap Changed Acetaminophen Tab [Tylenol] 650 mg PO Q6H PRN #30 tab PRN Reason: Pain Discontinued oxyCODONE HCL [OxyIR] 5 mg PO Q6H PRN 3 Days #10 tab PRN Reason: Pain Discharge Medication List Losartan [Cozaar] 50 mg PO DAILY 05/02/21 [History] Multivitamins, Thera [Multivitamin (formulary)] 1 tab PO DAILY 05/02/21 [History] Phentermine HCl [Adipex-P] 37.5 mg PO DAILY 05/02/21 [History] Docusate [Colace] 100 mg PO BID #20 cap 06/15/21 [Rx] Evening [place] Oil 500 mg PO DAILY 06/22/21 [History] Acetaminophen Tab [Tylenol] 650 mg PO Q6H PRN #30 tab 06/23/21 [Rx] Ibuprofen [Motrin] 600 mg PO Q6HR PRN #40 tab 06/23/21 [Rx] oxyCODONE HCL [OxyIR] 5 mg PO Q6H PRN 3 Days #12 tab 06/23/21 [Rx] Follow up Appointment(s)/Referral(s): Agustin Yañez MD [Primary Care Provider] - 1-2 days Eduard Workman MD [STAFF PHYSICIAN] - 1 Week Patient Instructions/Handouts: *Surgery [facility] - Scopalamine Patch Instructions Activity/Diet/Wound Care/Special Instructions: No driving while taking pain medication No lifting over 10 pounds You may shower. No soaking or tub baths for 2 weeks Very light activity until you are reevaluated at your follow up appointment with your surgeon Discharge Disposition: HOME SELF-CARE
[2021-06-23] MEDS ORDERED: NICOTINE 21MG/24HR PATCH TRANSDERM SCH (14:30)
--- NOTE | 2021-06-23 17:46 | P.CONS ---
History of Present Illness - Reason for Consult Consult date: 06/23/21 Medical management Requesting physician: Eduard Workman - Chief Complaint Hernia repair - History of Present Illness This is a pleasant 40-year-old patient who follows with Dr. Yañez. In May 2019 patient has undergone a colonoscopy and had a perforation from the same. Patient subsequently underwent exploration free laboratory for the same. She had then developed the incisional hernia superior portion of her midline scar. On June 15 she went laparoscopic robotic repair of incarcerated incisional hernia by Dr. Workman. She didn't presented to the ER yesterday complaining of nausea vomiting abdominal discomfort. She is having trouble keeping anything d own given her medications. Pain was around 3-4 out of 10. She has been getting abdominal binder. From a prior surgery. Computed tomography scan abdomen and pelvis showed numerous severely dilated small bowel loops and anterior abdominal wall hernia and eating [place] segments of more normal low decompressed small bowel. Patient yesterday in June 22 was taken back to the OR. Under general anesthesia. Hernia sac was opened and contained small bowel. Hernia sac was excised. There was a break in the faucial suture of the original repair. Suture was cut and removed. Mesh was removed. Pressure was then closed. Due to risk of infection Dr. Workman decided not to replace the mesh. Skin was closed with angela. Patient has an abdominal binder. Patient this afternoon has tolerated clear liquids. Diet has been advanced for the afternoon. Some abdominal pain. Slight nausea. Patient is an active smoker. Also takes Adipex for weight loss which she has not taken for last 2-3 weeks. Also takes medicine for blood pressure. 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 . Smokes about three-quarter to 1 pack a day. Alcohol occasionally. Family history: DVT Physical examination: VITAL SIGNS: 97.7, 82, 16, 10 9 x 72, 94% room air GENERAL: BMI 32.7, laying in bed, awake not in distress. EYES: Pupils equal. Conjunctiva normal. HEENT: External appearance of nose and ears normal, oral cavity grossly normal. NECK: JVD not raised; masses not palpable. HEART: First and second heart sounds are normal; no edema. LUNGS: Respiratory rate normal; clear to auscultation. ABDOMEN: Soft, mildly tender, midline incision with dressing, liver spleen not palpable, no masses palpable. Abdominal binder PSYCH: Alert and oriented x3; mood and affect normal. NEUROLOGICAL: Cranial nerves grossly intact; no facial asymmetry, power and sensation grossly intact. LYMPHATICS: No lymph nodes palpable in the axilla and neck INVESTIGATIONS, reviewed in the clinical context: WBC 14.4 hemoglobin 17.6 platelets 407 sodium 128 potassium 3.9 BUN 33 creatinine 0.71 calcium 11 Coronavirus [PCR]: Not detected Computed tomography scan of the abdomen: Numerous severely dilated small bowel loops with an enhancing wall suggestive edema. Abrupt caliber change. At the level of the hernia. Assessment and plan: -Incarcerated incisional hernia, with surgical repair of the same. Mesh from recent surgery was removed. Abdominal binder. Patient is tolerating clear liquid diet. Diet is being advanced by surgery. -Essential hypertension Currently her blood pressure running on the lower side. Patient told to hold off her Cozaar. This can be resumed when blood pressures,. -Chronic nicotine dependence,'s cigarette smoker Nicotine patch. It was emphasized to the patient that cigarettes smoking is good to interfaith with wound healing's especially given to recent back to back surgery. -Obesity BMI 32.7 Patient takes Adipex-P for the same. Currently not taking for last few days. Diet is being advanced as per surgery. IV fluids. Patient labs are reviewed. This appeared to be hemoconcentrated. Increase activity as tolerated. Thank you Dr. Workman Smoke cessation counseling: This was done with the patient. Nicotine patch is being given. More than 3 minutes was spent for this Past Medical History Past Medical History: Hypertension History of Any Multi-Drug Resistant Organisms: None Reported Past Surgical History: Hernia Repair, Uterine Ablation Additional Past Surgical History / Comment(s): Colonoscopy - perforated, had bowel sutured back. Past Anesthesia/Blood Transfusion Reactions: No Reported Reaction Past Psychological History: No Psychological Hx Reported Smoking Status: Current every day smoker Past Alcohol Use History: Occasional Additional Past Alcohol Use History / Comment(s): 3/4 ppd smoker since age 14. Past Drug Use History: None Reported - Past Family History Mother Family Medical History: Cancer, Deep Vein Thrombosis (DVT) Medications and Allergies Home Medications Medication Instructions Recorded Confirmed Type Losartan [Cozaar] 50 mg PO DAILY 05/02/21 06/22/21 History Multivitamins, Thera [Multivitamin 1 tab PO DAILY 05/02/21 06/22/21 History (formulary)] Phentermine HCl [Adipex-P] 37.5 mg PO DAILY 05/02/21 06/22/21 History Docusate [Colace] 100 mg PO BID #20 cap 06/15/21 06/22/21 Rx Evening [place] Oil 500 mg PO DAILY 06/22/21 06/22/21 History Acetaminophen Tab [Tylenol] 650 mg PO Q6H PRN #30 tab 06/23/21 Rx Ibuprofen [Motrin] 600 mg PO Q6HR PRN #40 tab 06/23/21 Rx Nicotine 21Mg/24Hr Patch [Habitrol] 1 each TRANSDERM DAILY #14 patch 06/23/21 Rx oxyCODONE HCL [OxyIR] 5 mg PO Q6H PRN 3 Days #12 tab 06/23/21 Rx Allergies Allergy/AdvReac Type Severity Reaction Status Date / Time acetaminophen AdvReac Nausea & Verified 06/22/21 12:03 [From Darvocet-N] Vomiting propoxyphene AdvReac Nausea & Verified 06/22/21 12:03 [From Darvocet-N] Vomiting Physical Exam Vitals: Vital Signs Temp Pulse Pulse Pulse Resp BP BP 06/23/21 08:08 97.7 F 82 16 109/72 06/23/21 08:00 82 16 06/23/21 01:12 98.3 F 99 18 119/75 06/22/21 20:15 84 16 114/82 06/22/21 19:11 92 16 125/81 06/22/21 18:31 76 16 113/77 06/22/21 18:01 93 16 136/89 06/22/21 17:46 98 16 141/88 06/22/21 17:31 87 16 130/86 06/22/21 17:16 94 16 137/87 06/22/21 17:04 86 06/22/21 17:01 98.3 F 81 16 143/86 06/22/21 16:30 76 16 150/81 06/22/21 16:15 87 16 151/76 06/22/21 16:00 76 18 148/77 06/22/21 15:45 91 18 183/98 06/22/21 15:27 97.6 F 94 14 187/107 06/22/21 14:07 97.6 F 113 H 18 178/90 Pulse Ox 06/23/21 08:08 94 L 06/23/21 08:00 06/23/21 01:12 98 06/22/21 20:15 97 06/22/21 19:11 98 06/22/21 18:31 99 06/22/21 18:01 99 06/22/21 17:46 98 06/22/21 17:31 98 06/22/21 17:16 98 06/22/21 17:04 98 06/22/21 17:01 99 06/22/21 16:30 97 06/22/21 16:15 100 06/22/21 16:00 100 06/22/21 15:45 100 06/22/21 15:27 100 06/22/21 14:07 95 Intake and Output 06/22/21 06/23/21 06/23/21 22:59 06:59 14:59 Intake Total 775 00619 400 Output Total 245 600 Balance 530 09629 400 Intake: IV 400 Intake, IV Titration 375 87557 Amount Lactated Ringers 1,000 ml 375 @ 125 mls/hr IV .Q8H ONE Rx#:[id number] Piperacillin-Tazobactam 3 100 .375 gm In Sodium Chloride 0.9% 100 ml @ 25 mls/hr IVPB Q8HR [facility] Rx# :[id number] Sodium Chloride 0.9% 1, 09039 000 ml @ 130 mls/hr IV . Q7H42M [facility] Rx#:[id number] Oral 400 Output: Urine 225 600 Estimated Blood Loss 20 Other: Voiding Method Indwelling Catheter Indwelling Catheter Weight 81.193 kg Results CBC & Chem 7: 06/22/21 11:36 06/22/21 11:36 Labs: Abnormal Lab Results - Last 24 Hours (Table) 06/22/21 06/22/21 06/22/21 Range/Units 11:36 11:36 11:36 WBC 14.4 H (3.8-10.6) k/uL RBC 5.52 H (3.80-5.40) m/uL Hgb 17.6 H (11.4-16.0) gm/dL Hct 52.2 H (34.0-46.0) % Neutrophils # 11.2 H (1.3-7.7) k/uL Sodium 128 L (137-145) mmol/L Chloride 84 L (98-107) mmol/L BUN 33 H (7-17) mg/dL Glucose 121 H (74-99) mg/dL Calcium 11.0 H (8.4-10.2) mg/dL Urine Appearance Cloudy H (Clear) Urine Protein 1+ H (Negative) Urine Ketones 2+ H (Negative) Urine Bilirubin 1+ H (Negative) Ur Leukocyte Esterase Small H (Negative) Urine WBC 6 H (0-5) /hpf Urine Bacteria Occasional H (None) /hpf Hyaline Casts 42 H (0-2) /lpf Urine Mucus Many H (None) /hpf
== END 2021-06-23 17:55 | disposition home or self-care (01) | DRG 355 ==
LOC: EC 10:39 → OR 10:39 → OBSVTOIN 13:00 → 6PED 13:00 → OR 13:00 → EC 14:20 → EDSTATUS 14:27 → 6PED 15:51
PROVIDERS: ADMIT Surgery; ATTEND Surgery
PROC: 0WQF0ZZ Repair Abdominal Wall, Open Approach (ICD-10-PCS; principal; 2021-06-22 13:45)
PROC: 0WPF0JZ Removal of Synthetic Substitute from Abdominal Wall, Open Approach (ICD-10-PCS; 2021-06-22 13:45)
DX: K43.0 Incisional hernia with obstruction, without gangrene (principal); E66.9 Obesity, unspecified; Z68.32 Body mass index [BMI] 32.0-32.9, adult; F17.210 Nicotine dependence, cigarettes, uncomplicated; I10 Essential (primary) hypertension; Z79.899 Other long term (current) drug therapy; T81.89XA Other complications of procedures, not elsewhere classified, initial encounter; Z20.822 Contact with and (suspected) exposure to COVID-19
CPT/HCPCS: 36415; 74177; 80053; 81001; 81025; 82150; 83690; 85025; 87635; 88302; 96361; 96374; 96375; 99284